=== PATIENT | female | born 1970 | race African-American/Black ===

== ENCOUNTER 2018-08-29 08:38 | Emergency (ER) | payer BC, SELFPAY ==
[2018-08-29 09:24] LABS: Absolute Lymphocytes (CBC) 1.1 K/uL (0.7-4.9); Absolute Monocytes 0.8 K/uL (0.1-1.3); Absolute Neutrophil 6.2 K/uL (1.8-8.0); Basophils % 0.5 % (0-1.3); Eosinophils % 0.7 % (0-4.4); Hematocrit 35.7 % (36.0-45.0); Lymphocytes % 13.5 % (15.3-44.8); MPV 9.6 fL (7.6-11.3); Monocytes % 9.5 % (3.3-12.3); RBC Red Blood Cell Count 4.55 M/uL (3.86-4.86)
[2018-08-29 09:36] LABS: ALT/SGPT 20 U/L (12-78); AST/SGOT 19 U/L (15-37); Albumin 3.7 g/dL (3.4-5.0); Alkaline Phosphatase 75 U/L (45-117); BUN Blood Urea Nitrogen 10 mg/dL (7-18); Bicarbonate 25 mmol/L (21-32); Bilirubin Total 0.6 mg/dL (0.2-1.0); Glucose Level 115 mg/dL (74-106); Potassium 3.5 mmol/L (3.5-5.1); Protein, Total 8.3 g/dL (6.4-8.2); Sodium Level 140 mmol/L (136-145)
--- NOTE | 2018-08-29 10:19 | RAD REPORT ---
EXAM DESCRIPTION: US - BREAST/AXILLA, COMPLETE - 08/29/2018 10:04 am CLINICAL HISTORY: Left breast swelling COMPARISON: None FINDINGS: Retroareolar ducts are dilated within the inner lower left breast. A fluid-filled abscess is not seen. IMPRESSION: Dilated retroareolar ducts within the left breast containing debris. A fluid-filled abscess is not seen
--- NOTE | 2018-08-29 10:59 | ER ---
Nurse's Notes [facility] Name: Osiris Smith Age: 47 yrs Sex: Female : 1970 Arrival Date: 08/29/2018 Time: 08:42 Bed 6 Private MD: Diagnosis: Cellulitis of the left breast Presentation: 08/29 08:48 Presenting complaint: Patient states: "I woke up today with pain to my left breast and aa5 it feels like there is a lump and my said it was red underneath". Transition of care: patient was not received from another setting of care. Onset of symptoms was August 29, 2018. Risk Assessment: Do you want to hurt yourself or someone else? Patient reports no desire to harm self or others. Initial Sepsis Screen: Does the patient meet any 2 criteria? No. Patient's initial sepsis screen is negative. Does the patient have a suspected source of infection? No. Patient's initial sepsis screen is negative. Care prior to arrival: None. 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 - Social history:: Smoking status: Patient uses tobacco products, denies chronic smoking, but will smoke occasionally. - Ebola Screening: : No symptoms or risks identified at this time. Screenin:09 Abuse screen: Denies threats or abuse. Denies injuries from another. Nutritional hb screening: No deficits noted. Tuberculosis screening: No symptoms or risk factors identified. Fall Risk None identified. Assessment: 09:00 General: Appears in no apparent distress. Behavior is calm, cooperative. Pain: Pain hb currently is 8 out of 10 on a pain scale. Neuro: Level of Consciousness is awake, alert, obeys commands, Oriented to person, place, time, situation. Cardiovascular: Capillary refill < 3 seconds Patient's skin is warm and dry. Respiratory: Airway is patent Respiratory effort is even, unlabored, Respiratory pattern is regular, symmetrical, Breath sounds are clear bilaterally. GI: No signs and/or symptoms were reported involving the gastrointestinal system. : No signs and/or symptoms were reported regarding the genitourinary system. EENT: No signs and/or symptoms were reported regarding the EENT system. Derm: Skin is intact, is healthy with good turgor, erythema noted to left breast. Musculoskeletal: No signs and/or symptoms reported regarding the musculoskeletal system. 10:00 Reassessment: Patient appears in no apparent distress at this time. No changes from hb previously documented assessment. Patient and/or family updated on plan of care and expected duration. Pain level reassessed. Patient is alert, oriented x 3, equal unlabored respirations, skin warm/dry/pink. 10:50 Reassessment: Patient appears in no apparent distress at this time. No changes from hb previously documented assessment. Patient and/or family updated on plan of care and expected duration. Pain level reassessed. Patient is alert, oriented x 3, equal unlabored respirations, skin warm/dry/pink. Vital Signs: 08:48 BP 157 / 92; Pulse 87; Resp 16 S; Temp 98.4(TE); Pulse Ox 100% on R/A; Weight 49.9 kg aa5 (R); Height 5 ft. 6 in. (167.64 cm) (R); Pain 8/10; 10:00 BP 138 / 90; Pulse 75; Resp 16; Pulse Ox 97% on R/A; hb 10:50 BP 128 / 82; Pulse 78; Resp 16; Pulse Ox 100% on R/A; hb 08:48 Body Mass Index 17.75 (49.90 kg, 167.64 cm) aa5 ED Course: 08:42 Patient arrived in ED. as 08:42 Arm band placed on. aa5 08:46 Isela Becerra PA is PHCP. [facility] 08:46 Saeid Puga MD is Attending Physician. [facility] 08:51 Triage completed. aa5 08:58 Ama Webb, CHRISTINA is Primary Nurse. hb 09:09 Patient has correct armband on for positive identification. Bed in low position. Call hb light in reach. Side rails up X 1. 09:09 Inserted saline lock: 20 gauge in right antecubital area, using aseptic technique. hb Blood collected. 10:04 Ultrasound completed. Patient tolerated well. Notified LUNCH TRUCK OPERATOR/PA isela. sg3 10:05 BREAST/AXILLA, COMPLETE In Process Unspecified. EDMS 10:57 Mian Isbell MD is Referral Physician. [facility] 11:07 No provider procedures requiring assistance completed. IV discontinued, intact, hb bleeding controlled, No redness/swelling at site. Pressure dressing applied. Administered Medications: No medications were administered Outcome: 10:58 Discharge ordered by . [facility] 11:07 Discharged to home ambulatory. 11:07 Condition: stable 11:07 Discharge instructions given to patient, Instructed on discharge instructions, follow up and referral plans. medication usage, Demonstrated understanding of instructions, follow-up care, medications, Prescriptions given X 1. 11:08 Patient left the ED. hb Signatures: Dispatcher [employer] [facility] Isela Becerra PA PA jmm Martinez, Amelia as Calderon, Audri, RN RN aa5 Ama Webb RN RN Haley Pleitez sg3
--- NOTE | 2018-08-29 10:59 | EDPHYS ---
Physician Documentation [facility] Name: Osiris Smith Age: 47 yrs Sex: Female : 1970 Arrival Date: 08/29/2018 Time: 08:42 Bed 6 Private MD: ED Physician Saeid Puga HPI: 08/29 08:55 This 47 yrs old Black Female presents to ER via Ambulatory with complaints of Breast jmm Problem. 08:55 The patient presents with breast swelling. Onset: The symptoms/episode began/occurred 1 jmm day(s) ago. Modifying factors: The symptoms are alleviated by nothing, the symptoms are aggravated by nothing. Associated signs and symptoms: Pertinent negatives: fever. This is a 47 year old female with no chronic medical conditions that presents to the ED with complaints of left breast swelling and redness beginning yesterday worsening this morning. Patient denies fever, denies chills. Patient denies family history of breast cancer. . 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 - Social history:: Smoking status: Patient uses tobacco products, denies chronic smoking, but will smoke occasionally. - Ebola Screening: : No symptoms or risks identified at this time. ROS: 08:55 Constitutional: Negative for fever, chills, and weight loss, Cardiovascular: Negative jmm for chest pain, palpitations, and edema, Respiratory: Negative for shortness of breath, cough, wheezing, and pleuritic chest pain. 08:55 Cardiovascular: 08:55 : Positive for 08:55 Skin: Positive for erythema, swelling. 08:55 All other systems are negative. Exam: 08:55 Constitutional: This is a well developed, well nourished patient who is awake, alert, jmm and in no acute distress. Head/Face: atraumatic. Eyes: EOMI, no conjunctival erythema appreciated ENT: Moist Mucus Membranes Neck: Trachea midline, Supple Chest/axilla: Normal chest wall appearance and motion. Cardiovascular: Regular rate and rhythm. No edema appreciated Respiratory: Normal respirations, no respiratory distress appreciated Abdomen/GI: Non distended, soft 08:55 Neuro: Awake and alert, normal gait Psych: Behavior is normal, Mood is normal, Patient is cooperative and pleasant 08:55 Skin: erythema and induration appreciated to the left breast. mildly tender to palpation. Vital Signs: 08:48 BP 157 / 92; Pulse 87; Resp 16 S; Temp 98.4(TE); Pulse Ox 100% on R/A; Weight 49.9 kg aa5 (R); Height 5 ft. 6 in. (167.64 cm) (R); Pain 8/10; 10:00 BP 138 / 90; Pulse 75; Resp 16; Pulse Ox 97% on R/A; hb 10:50 BP 128 / 82; Pulse 78; Resp 16; Pulse Ox 100% on R/A; hb 08:48 Body Mass Index 17.75 (49.90 kg, 167.64 cm) aa5 MDM: 08:55 Patient medically screened. [facility] 10:52 Data reviewed: vital signs, nurses notes. Counseling: I had a detailed discussion with regi the patient and/or guardian regarding: the historical points, exam findings, and any diagnostic results supporting the discharge/admit diagnosis, lab results, radiology results, the need for outpatient follow up, to return to the emergency department if symptoms worsen or persist or if there are any questions or concerns that arise at home. ED course: Patient is advised to follow up with general surgery for further evaluation/breast cancer rule out. Patient is given wound infection return precautions. Patient understood and agrees with the plan of care. . 08/29 08:56 Order name: CBC with Diff; Complete Time: 09:29 [facility] 08/29 08:56 Order name: CMP; Complete Time: 09:37 [facility] 08/29 08:56 Order name: Procalcitonin; Complete Time: 09:55 [facility] 08/29 08:56 Order name: Saline Lock; Complete Time: 09:08 [facility] 08/29 10:04 Order name: BREAST/AXILLA, COMPLETE; Complete Time: 10:23 EDMS Administered Medications: No medications were administered Disposition: 18:10 Co-signature as Attending Physician, Saeid Puga MD. rn Disposition: 08/29/18 10:58 Discharged to Home. Impression: Cellulitis of the left breast. - Condition is Stable. - Discharge Instructions: Cellulitis, Adult. - Prescriptions for Clindamycin HCl 300 mg Oral Capsule - take 1 capsule by ORAL route every 6 hours for 10 days; 40 capsule. - Medication Reconciliation Form, Thank You Letter, Antibiotic Education, Prescription Opioid Use form. - Follow up: Mian Isbell MD; When: 1 - 2 days; Reason: Recheck today's complaints, Continuance of care, Re-evaluation by your physician. Signatures: Dispatcher [employer] [facility] Zaheer Becerra PA PA Saeid Calvert MD MD rn Calderon, Audri, RN RN aa5 Ama Webb RN RN Corrections: (The following items were deleted from the chart) 10:04 08:56 [employer]+US.RAD.BRZ ordered. [facility] 11:08 10:58 08/29/2018 10:58 Discharged to Home. Impression: Cellulitis of the left breast. hb Condition is Stable. Forms are Medication Reconciliation Form, Thank You Letter, Antibiotic Education, Prescription Opioid Use. Follow up: Mian Isbell; When: 1 - 2 days; Reason: Recheck today's complaints, Continuance of care, Re-evaluation by your physician. regi
== END 2018-08-29 11:08 | disposition home or self-care (01) ==
LOC: ER 08:38
DX: N61.0 Mastitis without abscess (principal); Z72.0 Tobacco use
CPT/HCPCS: 36415; 76641; 80053; 84145; 85025; 99284